=== PATIENT | male | born 1945 | race Caucasian/White ===

== ENCOUNTER 2022-07-08 09:35 | Observation (INO) ==
--- NOTE | 2022-06-24 10:29 | PAT Medication Instructions ---
Medication Instructions Date of Service June 24, 2022 Home Medications aspirin 81 mg tablet 81 mg PO QAM gabapentin 800 mg tablet 800 mg PO QAM isosorbide mononitrate 30 mg tablet,extended release 24 hr 30 mg PO QAM losartan 50 mg tablet 50 mg PO HS rosuvastatin 20 mg tablet 20 mg PO QAM silodosin 8 mg capsule 8 mg PO QPM tramadol 100 mg tablet 100 mg PO QAM Take morning of surgery With a small sip of water, OTHERWISE NOTHING TO EAT OR DRINK AFTER MIDNIGHT: aspirin 81 mg tablet 81 mg PO QAM (continue as normal unless told otherwise by surgeon) gabapentin 800 mg tablet 800 mg PO QAM isosorbide mononitrate 30 mg tablet,extended release 24 hr 30 mg PO QAM rosuvastatin 20 mg tablet 20 mg PO QAM tramadol 100 mg tablet 100 mg PO QAM Take evening before surgery losartan 50 mg tablet 50 mg PO HS silodosin 8 mg capsule 8 mg PO QPM Other Notes If you have any questions please call us at [phone] or [phone] or [phone] or [phone]
--- NOTE | 2022-06-26 09:40 | History & Physical Report ---
Date of Service June 26, 2022 date of surgery: 07/08/22 Procedure: Left Total Knee Arthroplasty Surgeon: Greg Holloway Assessment & Plan (1) Arthritis of knee, left: Plan: Risks and benefits of procedure discussed in detail today, patient would like to proceed with a Left total knee replacement at [facility] as scheduled. will obtain medical clearance prior to surgery as well as obtain PATs at [facility]. Will place on ASA 81mg po bid x 1 month post op, f/u 2 weeks post op for routine post-operative care and x-ray, sooner if having any problems. will make arrangements for HHPT at the time of discharge. At this point in time, has failed conservative measures and would like to proceed with surgical intervention. The risks and benefits have been discussed including, but not limited to, risk of infection, nerve injury, stiffness, loss of motion, failure to improve, etc. Reasonable outcomes and options of treatment were discussed. An explanation of appropriate alternatives to the procedure that may be advantageous were discussed and their risks and benefits, as well as the risks and benefits of not proceeding with treatment. I offered to answer any additional inquiries concerning the treatment involved. All the patient's questions were answered. The patient is agreeable, understanding of the treatment plan and alternatives, and wishes to proceed with the treatment plan. History of Present Illness Chief Complaint: left knee pain Primary Care Provider: JOSE RAFAEL BERNSTEIN Deandre is a pleasant 76-year-old male who presents for preop evaluation prior to his left total knee replacement. He states that he been having pain in his knee for many years now which is gradually worsened and is now affecting his daily activities including walking standing using stairs. He is tried oral anti- inflammatories and Tylenol without relief. X-rays were obtained which show advanced generative changes of the left knee, [id number] medial compartment and patellofemoral joint with joint space narrowing osteophyte formation subchondral sclerosis. He has a history of right knee replacement done approximately 10 years ago as well as ORIF of a right tibial plateau fracture. At this point time his left knee pain is affecting his daily activities and like to proceed with left total knee replacement Allergies Allergy/AdvReac Type Severity Reaction Status Date / Time No Known Allergies Allergy Verified 06/24/22 07:35 Home Medications Medication Instructions Recorded Confirmed Type aspirin 81 mg tablet 81 mg PO QAM 06/24/22 06/24/22 History gabapentin 800 mg tablet 800 mg PO QAM 06/24/22 06/24/22 History isosorbide mononitrate 30 mg 30 mg PO QAM 06/24/22 06/24/22 History tablet,extended release 24 hr losartan 50 mg tablet 50 mg PO HS 06/24/22 06/24/22 History rosuvastatin 20 mg tablet 20 mg PO QAM 06/24/22 06/24/22 History silodosin 8 mg capsule 8 mg PO QPM 06/24/22 06/24/22 History tramadol 100 mg tablet 100 mg PO QAM 06/24/22 06/24/22 History Past Med/Surg History Medical History Dysphagia Occasional HTN (hypertension) follows w/ Dr. Fay ([place]) Hx of renal calculi Hyperlipidemia Spinal cord neurostimulator device in situ ? unknown if PAT RN made patient aware to bring remote to PAT visit/DOS Surgical History History of carpal tunnel release of both wrists History of lithotripsy History of partial amputation of hand left thumb Hx of colonoscopy Hx of elbow surgery Hx of hand surgery left Hx of knee surgery right (dislocation) Hx of shoulder surgery Right rotator cuff repair x2 Hx of spinal surgery lumbar x2 (rods and cages- 2013) Hx of total knee replacement right Family History Other No family history of adverse response to anesthesia Social History Smoking Status: Never smoker Second Hand Exposure: No; Do You Dip or Chew Tobacco: No; Tobacco Cessation Education Requested by Patient: No Hx Alcohol Use: Yes Alcohol type: beer Hx Substance Use: No Preferred Language: Frisian Communication Ability: Effective Pediatrics Physician Required: No Beliefs That Will Affect Care: None Current Living Situation: Alone Other Information That Helps Us Care for You: No Feels Safe at Home: Yes Safety Concerns: Feels Safe At This Time Assistive Devices: Cane, Glasses, Hearing Aid - Bilateral and Walker Review of Systems Review of Systems: All systems reviewed & are unremarkable except as noted in HPI & below Constitutional: no fever, no chills and no sweats Respiratory: no cough and no dyspnea Cardiovascular: no chest pain, no dyspnea and no orthopnea Gastrointestinal: no abdominal pain, no nausea and no vomiting Musculoskeletal: as per Subjective / HPI Physical Exam Physical Exam: HT: 6ft 1in WT: 124.7kg Constitutional: WD/WN, vitals as above no acute distress Respiratory: normal respiratory effort, lungs clear to auscultation no respiratory distress, no labored breathing and does not use accessory muscles Cardiovascular: RRR, no murmur, no edema Gastrointestinal (Abdomen): normal bowel sounds, soft, nontender, no hepatosplenomegaly Musculoskeletal: Knee: + knee abnormal to inspection (LEFT KNEE), + effusion (+1 effusion), + limited ROM of knee (ROM 0/3/110), + knee ROM with crepitation, + joint line tenderness (medial joint line) and + Fannie's sign positive; no deformity, no skin erythema, no ecchymosis, no valgus laxity, no varus laxity, anterior drawer test negative, Gi's sign negative and pivot shift test negative Results & Data Results & Data Diagnostic Findings Left Knee X-ray: left knee series confirm advanced degenerative changes to the left knee, greatest medial compartments and patellofemoral joint, showing joint space narrowing, osteophyte formation and subchondral sclerosis. no acute bony pathology noted.
--- NOTE | 2022-06-26 10:24 | Anesthesiology Consultation ---
Date of Service June 26, 2022 Assessment & Plan (1) Encounter for pre-operative examination: - COVID screening: Per assessment on 06/26: No known COVID-19 positive contacts or current COVID-19 related symptoms. Travel screen negative. Patient vaccinated. At surgeon discretion if preop Covid testing being done. - Cardiology note (06/02/22): "Low to moderate risk" - Outpatient joint assessment: Pt currently scheduled for inpatient pathway. If surgeon requests review for outpatient joint pathway, patient is not recommended candidate for outpatient joint program from anesthesia standpoint. - Anesthesia concern: Pt states that after back injection for sciatica, patient had significant nerve pain resulting in ER visit. No improvement with narcotics. After 2 weeks, prescribed gabapentin and had significant improvement/resolution of pain. He has concerns with neuraxial anesthesia/anything in the spinal region d/t this issue in the past. Discussed SAB vs GA. Advised patient to discuss with anesthesiologist further AM DOS. Chart Review Chart Review: Acceptable Risk for Surgery and Patient seen in Pre Admission Testing Teaching & Discussion Pre-Anesthesia Teaching/Discussion Notes: Instructed NPO after midnight before surgery,except medications with 15 cc of water. Medication instructions provided according to the PAT guidelines. History Surgery Operation Date: 07/08/22 11:40 Proposed Procedures p Left Total Knee Arthroplasty - Greg Holloway DO Height/Weight Height: 6 ft 1 in Weight: 123.4 kg Allergies Allergy/AdvReac Type Severity Reaction Status Date / Time No Known Allergies Allergy Verified 06/24/22 07:35 Medications Home Medications Medication Instructions Recorded Confirmed Last Taken aspirin 81 mg tablet 81 mg PO QAM 06/24/22 06/24/22 Unknown gabapentin 800 mg tablet 800 mg PO QAM 06/24/22 06/24/22 Unknown isosorbide mononitrate 30 mg 30 mg PO QAM 06/24/22 06/24/22 Unknown tablet,extended release 24 hr losartan 50 mg tablet 50 mg PO HS 06/24/22 06/24/22 Unknown rosuvastatin 20 mg tablet 20 mg PO QAM 06/24/22 06/24/22 Unknown silodosin 8 mg capsule 8 mg PO QPM 06/24/22 06/24/22 Unknown tramadol 100 mg tablet 100 mg PO QAM 06/24/22 06/24/22 Unknown Past Medical History Medical History Dysphagia Occasional (meat, large fruit), unchanged x years HTN (hypertension) follows w/ Dr. Fay ([place]) Hx of renal calculi Hyperlipidemia Spinal cord neurostimulator device in situ patient aware to bring remote DOS Exercise / Class Metabolic Activity II 4-5 Yardwork/Stairs/Walk up hill (one FS (no CP, no SOB)) Past Family History Family History Other No family history of adverse response to anesthesia Past Surgical History Surgical History History of carpal tunnel release of both wrists History of lithotripsy History of partial amputation of hand left thumb Hx of colonoscopy Hx of elbow surgery Hx of hand surgery left Hx of knee surgery right (dislocation) Hx of shoulder surgery Right rotator cuff repair x2 Hx of spinal surgery lumbar x2 (rods and cages- 2013) Hx of total knee replacement right Past Anesthesia History No Hx of Anesthesia Complications and No Family Hx of Anesthesia Complications History of PONV No Hx of PONV and No Hx of Motion Sickness Social History Smoking Status: Never smoker Do You Dip or Chew Tobacco: No Hx Alcohol Use: Yes Alcohol type: beer alcohol intake frequency: 0-2 drinks per day (1-2 beers/day) Hx Substance Use: No substance use type: does not use Review of Systems Patient denies chest pain, shortness of breath, dyspnea on exertion, fever, chills, cough, wheezing, palpitations. Physical Exam Vital Signs VITALS BP 149/75 P 69 TEMP 98.2 SP02 95%RA RESP 16 PHYSICAL Full cervical extension range of motion. Full TMJ range of motion. TMD 3.5 finger breaths Mallampati Score 3 Dentition: intact Lungs: clear throughout to auscultation Cardiac: regular rate and rhythm, no murmurs noted Spine: normal Carotid arteries: negative bruit Extremities: no edema Lab Results Anesthesia Preop Results Results Anesthesia Widget: PTT 27.4 Seconds (21.0-31.0) 06/26/22 HA1c 5.7 % (4.5-5.6) H 06/26/22 Urine Color Dark Yellow 06/26/22 Urine Appearance Clear (Clear) 06/26/22 Urine pH 5.5 (4.5-7.5) 06/26/22 Urine Specific Novice 1.025 (1.000-1.030) 06/26/22 Urine Protein Negative (Negative) 06/26/22 Urine Glucose (UA) Negative (Negative) 06/26/22 Urine Ketones Negative (Negative) 06/26/22 Urine Blood Negative (Negative) 06/26/22 Urine Nitrite Negative (Negative) 06/26/22 Urine Bilirubin Negative (Negative) 06/26/22 Urine Urobilinogen Negative (Negative) 06/26/22 Urine Leukocyte Esterase Negative (Negative) 06/26/22 Blood Type O Negative 06/26/22 Antibody Screen NEGATIVE 06/26/22 Testing Laboratory Results 06/18/22 WBC 6.9 H/H 15.3/45.1 PLATELETS 210 SODIUM 140 POTASSIUM 4.3 CHLORIDE 109 CO2 23 BUN 19 CREATININE 1.0 GLUCOSE 103 PT 10.6 INR 1.06 Electrocardiogram Date: 06/26/22 NSR at 64bpm. Chest X-Ray Date: 06/26/22 FINDINGS: Intracanalicular electrodes are incidentally noted. Lung volumes are normal. Lungs are clear. There is no pneumothorax or pleural effusion. Cardiac size is normal. Mediastinal contours are normal. There is no evidence for pulmonary edema. IMPRESSION: No acute cardiopulmonary findings. COVID-19 Risk Screen Screening Information COVID-19 Screen Date: 06/26/22 Exposure 21 Days Family/Household +COVID Last 21 Days: No Exposure 10 Days Any COVID Exposure Last 10 Days: No Symptoms Last 10 Days Experienced COVID Sx Last 10 Days: No + COVID 0-90 Days COVID + in Last 0-90 Days: No
[~2022-07-08 09:35] MED LIST: ACETAMINOPHEN 500 MG TAB PO SCH; BUPIVACAINE 0.5 % 5 MG/1 ML PF 10ML VIAL ONE; CeleBREX 200 MG CAP PO SCH; EPINEPHrine INJ 1 MG/ML AMP ONE; FAMOTIDINE 20 MG TAB PO SCH; GABAPENTIN 300 MG CAP PO SCH; LR 500ML BOLUS, THEN 15ML/HR IV SCH; METOCLOPRAMIDE HCL 10 MG TABLET PO SCH; ROPIVACAINE 0.5% 5 MG/ML 30 ML VIAL ONE; ROPIVACAINE 0.5% HCL/PF 150 MG, BUPIVACAINE 0.75% MPF 20 ML, EPINEPHrine 30MG/30ML (OR ... INSTIL SCH; TRANEXAMIC ACID 1,000 MG **IV Intra-op IV SCH; TRANEXAMIC ACID 1,000 MG **IV Pre-op IV SCH; dexAMETHasone 4 MG TAB PO SCH
--- NOTE | 2022-07-08 10:05 | History & Physical Bridge Note ---
Date of Service July 08, 2022 History & Physical Bridge Note I have examined the patient, reviewed the History & Physical and in the interval since the performance of the History & Physical I have noted the following changes of clinical significance: no changes noted
[2022-07-08] MEDS ORDERED: PROPOFOL IV EMULSION 10 MG/ML 20 ML VIAL IV ONE (10:34)
[2022-07-08] MEDS ORDERED: fentaNYL citrate PF 100 MCG/2 ML VIAL ONE ×2 (10:35→11:49)
[2022-07-08] MEDS ORDERED: MIDAZOLAM HCL 1 MG/ML 2ML VIAL ONE (10:35)
[2022-07-08] MEDS ORDERED: ORTHO JOINT ANESTHETIC ONE (11:08)
[2022-07-08] MEDS ORDERED: ONDANSETRON INJ 2 MG/ML 2 ML VIAL IV PRN ×2 (11:26→14:46)
[2022-07-08] MEDS ORDERED: FLUMAZENIL 0.1 MG/1 ML 10 ML VIAL IV PRN (11:26)
[2022-07-08] MEDS ORDERED: ePHEDrine sulfate 50 MG/ML AMP IV PRN (11:26)
[2022-07-08] MEDS ORDERED: NALOXONE HCL 0.4 MG/1 ML VIAL/CARP IV PRN ×2 (11:26→14:46)
[2022-07-08] MEDS ORDERED: PROMETHAZINE HCL 12.5 MG in SODIUM CHLORIDE 0.9% 50 ML IV PRN (11:26)
[2022-07-08] MEDS ORDERED: fentaNYL citrate PF 100 MCG/2 ML VIAL IV PRN (11:26)
[2022-07-08] MEDS ORDERED: ATROPINE SULFATE 0.1 MG/ML 10ML SYR IV PRN (11:26)
[2022-07-08] MEDS ORDERED: LABETALOL HCL IV 5 MG/ML 20ML IV PRN (11:26)
[2022-07-08] MEDS ORDERED: HYDROmorphone INJ 1 MG/ML SYRINGE IV PRN (11:26)
[2022-07-08] MEDS ORDERED: ONDANSETRON INJ 2 MG/ML 2 ML VIAL ONE (12:00)
[2022-07-08] MEDS ORDERED: SUCCINYLCHOLINE CHLORIDE 20 MG/ML 10 ML VIAL IV ONE (12:00)
[2022-07-08] MEDS ORDERED: ROCURONIUM BROMIDE 10 MG/ML 5 ML VIAL IV ONE (12:00)
--- NOTE | 2022-07-08 12:22 | Operative Report ---
Post Operative Report Pre & Post Diagnosis Operation Date: 07/08/22 12:20 Pre-Op Diagnosis: Left knee osteoarthritis. Post-Op Diagnosis: Left knee osteoarthritis. I identified the patient and participated in the time-out.: Yes Procedure Operation Date: 07/08/22 12:20 Actual Procedures p Left Total Knee Arthroplasty(Left) utilizing [employer] [facility] 2 patient matched total knee arthroplasty size femur 6 tibia 6 poly 12 patella 32 cali Holloway DO Surgeon Greg Holloway DO Electric Cutter Operator Lamine SOTO Estimated Blood Loss 5 Findings Consistent with Post-Op Diagnosis Patient presents with severe end-stage tricompartmental DJD left knee with varus alignment subchondral sclerosis moderate to medial and lateral osteophytes eburnated [id number] and moderate to large effusion Specimens Bone and cartilage Drains Medium bore Hemovac Anesthesia Type MAC Spinal Regional Complications none Disposition Accompanied Patient To Recovery: No Indications Patient presents with severe end-stage tricompartmental DJD failing attempted conservative management clinic physical therapy anti-inflammatories relative rest activity modification corticosteroid injection the above intraoperative findings were noted Description of Procedure After proper prepping and draping of the left lower extremity anterior midline incision was made over the region of the extensor extensor mechanism after meticulous hemostasis was obtained and maintained in subcutaneous tissues a medial parapatellar incision was made The patella was subluxed lateralward the medial lateral gutter were cleaned from any hypertrophic synovitis and scar tissue of the distal femoral block was placed and the distal femoral osteotomy cut was made subsequently the chamfers anterior and posterior osteotomy cuts were made utilizing the 4-in-1 block the tibia was subsequently subluxed anteriorward medial and ateral meniscal remnants were excised in their entirety remnants of the anterior and posterior cruciate ligaments were excised in their entirety excellent exposure of the proximal tibia was obtained the tibial osteotomy guide was placed on the proximal tibial osteotomy cut was made once again the knee was irrigated with copious amounts of sterile saline solution the patella was subsequently everted lateralward thickened scar tissue around the patella was removed the patella was subsequently cut utilizing a freehand technique and was drilled prepared for final preparation and placement of patella socially flexion-extension gaps were checked and the equal and symmetric trials were placed to the appropriate femoral and tibial trials with poly-spacer being placed for equal flexion and extension gaps and full range of motion including extension to 0 and flexion to 140 the trial components after having been taken to recovery range of motion was subsequently removed meticulous hemostasis was obtained and maintained subsequently a knee block injection of joint cocktail including ropivacaine 0.5% 150 mg. Bupivacaine 0.5% epinephrine 1-200,030 mL's toradol 30 mg dexamethasone 4 mg ketamine 10 mg clonidine 100 micrograms normal saline solution 30 mg was infiltrated into the soft tissues of the posterior knee medial lateral gutters and periosteal synovium special attention was paid to protect neurovascular structures at all times subsequently trial components having been removed the knee was irrigated with sterile saline solution. debris was removed the proximal tibia was subsequently prepared and was made ready for the placement of the tibial component tibial component was also cemented and tamped into position the femoral component was subsequently placed and cemented in the position the patellar component was subsequently cemented in position because hemostasis once again obtained and maintained wound having been thoroughly irrigated with debridement and debridement lavage was performed as well as a medial parapatellar incision closed with #1 Vicryl in interrupted fashion subcutaneous was closed with #2 Vicryl skin was closed with skin clips. PA-C was necessary for prepping and drapping as well as wound closure of deep fascia Sub cutaneous tissue and skin and was necessary for the case. A sterile compressive dressing was placed patient was taken to recovery in stable condition of report dictated by Jewel I attest to the content of the Intraoperative Record and any orders documented therein. Any exceptions are noted below the complex nature of the procedure, the entire surgery was performed with the operational assistance of Lamine SOTO. The assistant professor of physics, under direct supervision, was involved in the actual performance of all aspects of the surgical procedure including hemostasis, tissue retraction and incision, instrument management, patient positioning, and wound closure. I attest to the content of the Intraoperative Record and any orders documented therein. Any exceptions are noted below.
[2022-07-08] MEDS ORDERED: SUGAMMADEX SODIUM 200 MG/2 ML VIAL IV ONE (12:57)
--- NOTE | 2022-07-08 13:45 | Anesthesiology Progress Note ---
Date of Service July 08, 2022 Anesthesia Post Procedure Vital Signs Vital Signs: Temp Pulse Resp BP Pulse Ox O2 Del Method O2 Flow Rate 07/08/22 13:40 75 17 116/64 95 Room Air 07/08/22 13:30 70 17 108/62 98 Room Air 07/08/22 13:20 75 18 98/62 L 98 Oxymask 5 07/08/22 13:14 36.5 C 84 18 116/62 99 Oxymask 5 07/08/22 10:27 36.5 C 74 20 167/85 H 95 Room Air Transfer of Care Handoff Completed per policy Notes Mental Status: alert / awake / arousable Patient Amnestic to Procedure: Yes Nausea / Vomiting: adequately controlled Pain: adequately controlled Airway Patency, RR, SpO2: stable & adequate BP & HR: stable & adequate Hydration State: stable & adequate Anesthetic Complications: no major complications apparent
--- NOTE | 2022-07-08 13:48 | XRay Report ---
TWO VIEWS LEFT KNEE CLINICAL HISTORY: Postoperative examination. FINDINGS: AP and crosstable lateral portable views of the left knee are obtained. A left knee arthrop lasty is in near anatomic alignment. There has been undersurface remodeling of the patella. No acute fracture is seen. There are expected postoperative changes around the knee including a surgical drain , soft tissue edema, and subcutaneous gas. IMPRESSION: Expected postoperative changes status post left knee arthroplasty. No acute fracture is s een. ACT 112: Negative or not required by law. Electronically signed by: Jroge Luis Lambert M.D. 07/08/2022 1:47 PM
[2022-07-08] MEDS ORDERED: diphenhydrAMINE 50 MG/ML VIAL IV PRN (14:46)
[2022-07-08] MEDS ORDERED: oxyCODONE HCL IR 5 MG TAB (IMMEDIATE RELEASE) PO PRN (14:46)
[2022-07-08] MEDS ORDERED: HYDROmorphone INJ 0.5 MG/0.5 ML SYR IV PRN (14:46)
[2022-07-08] MEDS ORDERED: bisacodyL 10 MG SUPP PR PRN (14:46)
[2022-07-08] MEDS ORDERED: MAGNESIUM HYDROXIDE SUSP 30 ML UDC PO PRN (14:46)
[2022-07-08] MEDS: SODIUM CHLORIDE 0.9% 1000ML 1,000 ML IV SCH (14:55)
[2022-07-08] MEDS: ACETAMINOPHEN 500 MG TAB PO SCH ×2 (15:43→23:45)
[2022-07-08] MEDS ORDERED: SENNA 8.6 MG TAB PO SCH (21:00)
[2022-07-08] MEDS ORDERED: LOSARTAN POTASSIUM 50 MG TAB PO SCH (21:00)
[2022-07-08] MEDS: ceFAZolin 2000MG 2,000 MG/15 ML SYR IV SCH (21:03)
[2022-07-08] MEDS: ASPIRIN 81 MG ECTAB PO SCH (21:03)
[2022-07-08] MEDS: DOCUSATE SODIUM 100 MG CAP PO SCH (21:04)
[2022-07-08] MEDS: GABAPENTIN 800 MG TAB PO SCH (21:04)
[2022-07-08] MEDS ORDERED: TAMSULOSIN HCL 0.4 MG CAP PO SCH (23:00)
[2022-07-09] MEDS: SODIUM CHLORIDE 0.9% 1000ML 1,000 ML IV SCH (01:00)
[2022-07-09] MEDS: ceFAZolin 2000MG 2,000 MG/15 ML SYR IV SCH (04:30)
[2022-07-09] MEDS: ACETAMINOPHEN 500 MG TAB PO SCH (05:26)
[2022-07-09 06:11] LABS: Hematocrit (blood only) 41.4 % (42.0-52.0); Hemoglobin 14.1 g/dl (14.0-18.0); Mean Corpuscular Hgb Conc 34.1 g/dL (32.0-36.0); Mean Corpuscular Volume 94.1 fL (80.0-100.0); Mean Platelet Volume 10.6 fL (9.4-12.4); Platelet Count 216 K/uL (130-400); RDW Coefficient of Variation 12.5 % (11.5-14.5); RDW Standard Deviation 43.3 fL (36.4-46.3); White Blood Count 14.73 K/ul (4.8-10.8)
[2022-07-09 06:24] LABS: BUN Creatinine Ratio 23.2 (10-20); Calcium 8.8 mg/dl (8.6-10.3); Creatinine Clr Calc Pharmacy 69.8 ml/min; Est GFR (African American) 64.9 ml/min; Potassium 4.7 mmol/L (3.5-5.1)
[2022-07-09] MEDS: DOCUSATE SODIUM 100 MG CAP PO SCH (07:31)
[2022-07-09] MEDS: ASPIRIN 81 MG ECTAB PO SCH (07:32)
[2022-07-09] MEDS: GABAPENTIN 800 MG TAB PO SCH (07:32)
--- NOTE | 2022-07-09 08:00 | Orthopedic Progress Note ---
Date of Service July 09, 2022 Assessment & Plan (1) Arthritis of knee, left: Plan: Postop day #1 left total knee arthroplasty -PT/OT -AM labs: Hemoglobin 14.5. Leukocytosis likely due to surgical stress versus perioperative steroids. Patient is asymptomatic. -DVT prophylaxis: SCDs, teds, aspirin 81 mg twice daily -Pain management as written -Discharge planning plan on discharge home with home health. We will leave Hemovac in place due to high output. Plan for home health to discontinue drain. Plan on discharge home today after therapy. Admission and Anticipated Discharge Date Admission Date: July 08, 2022 Subjective Patient is postop day #1 left total knee arthroplasty. He is doing well this morning. Has minimal pain. No current complaints. Denies chest pain, shortness of breath, nausea/vomiting, lightheadedness or dizziness. Review of Systems Review of Systems: All systems reviewed & are unremarkable except as noted in Subjective Physical Exam Physical Exam: Left knee: Dressing is clean, dry, intact. Toes are mobile with good dorsiflexion. No calf tenderness. Able to straight leg raise. Distally neurovascular status and sensation grossly intact. Constitutional: WD/WN, vitals as above Results & Data Vital Signs (Past 12 Hours) Vital Signs Temp Pulse Resp BP Pulse Ox O2 Del Method 07/09/22 07:46 36.5 C 78 16 156/64 H 98 Room Air 07/09/22 04:56 36.6 C 68 16 125/76 96 Room Air 07/08/22 21:03 Room Air 07/08/22 22:52 36.5 C 82 16 110/67 96 Room Air Laboratory Results Lab Results 07/08/22 07/09/22 07/09/22 Range/Units Unknown 05:43 05:43 WBC 14.73 H (4.8-10.8) K/ul RBC 4.40 L (4.70-6.10) M/uL Hgb 14.1 (14.0-18.0) g/dl Hct 41.4 L (42.0-52.0) % MCV 94.1 (80.0-100.0) fL MCH 32.0 (25.0-34.0) pg MCHC 34.1 (32.0-36.0) g/dL RDW Std Deviation 43.3 (36.4-46.3) fL RDW Coeff of Brice 12.5 (11.5-14.5) % Plt Count 216 (130-400) K/uL MPV 10.6 (9.4-12.4) fL Sodium 138 (136-145) mmol/L Potassium 4.7 (3.5-5.1) mmol/L Chloride 108 H (98-107) mmol/L Carbon Dioxide 25 (21-32) mmol/L Anion Gap 5 (3-11) BUN 29 H (6-23) mg/dl Creatinine 1.25 (0.6-1.4) mg/dl Est Cr Clr Drug Dosing 69.8 ml/min Est GFR ( Amer) 64.9 ml/min Est GFR (Non-Af Amer) 56.0 ml/min BUN/Creatinine Ratio 23.2 H (10-20) Glucose 128 H (70-99(Fasting)) mg/dl Calcium 8.8 (8.6-10.3) mg/dl SARS-CoV-2, RNA, NAAT NEGATIVE (NEGATIVE)
[2022-07-09] MEDS ORDERED: GABAPENTIN 800 MG TAB PO SCH (09:00)
[2022-07-09] MEDS ORDERED: ISOSORBIDE MONO EXTENDED REL 30 MG TABCR PO SCH (09:00)
[2022-07-09] MEDS ORDERED: ROSUVASTATIN CALCIUM 20 MG TAB PO SCH (09:00)
[2022-07-09] MEDS ORDERED: MULTIVITAMIN TAB PO SCH (09:00)
--- NOTE | 2022-07-10 16:05 | Discharge Summary ---
Date of Service date of discharge July 09, 2022 date of admission: 07/08/22 Admission HPI Per Admitting Provider Deandre is a pleasant 76-year-old male who presents for preop evaluation prior to his left total knee replacement. He states that he been having pain in his knee for many years now which is gradually worsened and is now affecting his daily activities including walking standing using stairs. He is tried oral anti- inflammatories and Tylenol without relief. X-rays were obtained which show advanced generative changes of the left knee, [id number] medial compartment and patellofemoral joint with joint space narrowing osteophyte formation subchondral sclerosis. He has a history of right knee replacement done approximately 10 years ago as well as ORIF of a right tibial plateau fracture. At this point time his left knee pain is affecting his daily activities and like to proceed with left total knee replacement Principal Diagnosis left knee arthritis Discharge Exam Musculoskeletal left knee: NVDI, calf SNT, negative rosita sign. DP palpable, able to wiggle toes/ankle movement without difficulty. YADIRA dressing clean dry and intact. expected post-operative bruising noted. Discharge Data Allergies Allergy/AdvReac Type Severity Reaction Status Date / Time No Known Allergies Allergy Verified 07/08/22 10:21 Consultations 07/08/22 14:46 Consult Hospitalist Routine Procedures Performed Operation Date: 07/08/22 12:20 Actual Procedures p Left Total Knee Arthroplasty(Left) - Greg Holloway DO Ordered Studies 07/08/22 05:00 US - OR guided needle placemen Routine 07/08/22 10:43 US - OR guided needle placemen Stat Hospital Course (1) Arthritis of knee, left: Postop day #1 left total knee arthroplasty -PT/OT -AM labs: Hemoglobin 14.5. Leukocytosis likely due to surgical stress versus perioperative steroids. Patient is asymptomatic. -DVT prophylaxis: SCDs, teds, aspirin 81 mg twice daily -Pain management as written -Discharge planning plan on discharge home with home health. We will leave Hemovac in place due to high output. Plan for home health to discontinue drain. Plan on discharge home today after therapy. Total Time Total Time Spent Total Time Spent (In Minutes): 20 Discharge Plan Discharge Items Patient Disposition: Home - Home Health Services Reason For Visit: Left Knee Osteoarthritis Discharge Diagnosis: Left Knee Osteoarthritis Activity: Per Instructions section Weightbearing: Left weightbearing Weightbearing Comment: as tolerated with walker Non-emergency contact: Surgeon Call non-emergency contact if: you have any medication questions, your pain is not controlled, your temperature is above 101.5, your wound has increased redne ss and your wound has increased drainage Follow-up/Referrals: Greg Holloway DO [Surgeon] - (Follow up with Dr Holloway or his PA in 2 weeks from the day of surgery for your first post operative visit. ) PCP,NO [Physician] - Diet: Regular Addtl Attending Provider Instructions: ACTIVITY RECOMMENDATIONS: SELF CARE INSTRUCTIONS AFTER TOTAL KNEE REPLACEMENT A. You may need to continue a physical therapy program after discharge from the hospital. There are several options available to you. Your doctor will assist you in selecting the best one for you. 1. An out-patient facility 2 to 3 times a week for therapy or home therapy. 2. Continue working on all exercises taught to you in the hospital. Your goals should be to increase bending of your knee to 90 degrees and beyond and to fully straighten your knee. B. You may progress at your own pace from walking with a walker or crutches to a cane; then to no assistive devices. C. Make walking a part of your daily routine. Be up as much as comfortable with rest periods throughout the day. Rest with leg elevation is very important. Use the ice wrap frequently for the first 3-4 weeks. D. There are no restrictions on activities. You may ride in a car, shop, participate in land conservation specialist and all social activities. E. Wear the long elastic stockings (CRISTINA hose) 20 hours a day for 2 weeks after surgery. They can be removed several times a day for laundering and for a bath. F. You may shower, no tub baths until cleared by your doctor. SPECIAL CARE INSTRUCTIONS: VERY IMPORTANT TO READ AND REVIEW A. There are a few signs you need to watch for after you are home. Call [facility] [place] if you notice any of the followin. Increased severe knee pain. Some pain is expected especially when you exercise. 2. Increased swelling in your leg or knee; pain or swelling of the calf muscle in either lower leg. 3. Any fluid drainage from the incision. 4. Shortness of breath or chest pain. B. Please call [facility] at if you have any concerns or questions about your operation or recovery. The doctor or his nurse will return your call promptly. C. You must take antibiotics before dental work, bladder, bowel or other surgery. Your doctor will provide you with a permanent care to carry describing this precaution. IMPORTANT: * REMEMBER TO TAKE ASPIRIN, 81 MG, TWICE DAILY FOR 4 WEEKS UNLESS OTHERWISE DIRECTED. THIS IS YOUR BLOOD THINNER. * CALL IF INCREASED PAIN, REDNESS, DRAINAGE OR FEVER GREATER THAT 101. * WEAR CRISTINA HOSE 20 HOURS PER DAY FOR 2 WEEKS. * YADIRA Dressing - This is a large suction dressing covering your incision. This will help pull any excess drainage from the wound and allow your incision to heal properly. You may shower with this if you can keep the unit outside of the shower. If any bleeding or leakage is noted please call your doctor's office. This will remain on your incision for 7 days and then should be removed. This can be done yourself or by the home nursing staff if applicable. The entire unit is disposable once removed. Once removed, keep incision clean and dry. If redness or drainage is noted, please call your surgeon. . ONCE YOUR YADIRA DRESSING HAS BEEN REMOVED, FOLLOW THE INSTRUCTIONS BELOW. * DERMABOND Prineo- This is a mesh tape dressing that is covered with glue. It should remain in place until the incision is properly healed, usually 10-14 days. This dressing is designed to naturally slough off. You may trim the excess mesh tape as it peels off. Incision may be briefly wet in a shower. Dry immediately by blotting with a clean, dry towel. Do not bath or swim until instructed by your doctor. Do not scratch, rub, or pick at the dressing. Do not apply any topical ointments or lotions until dressing is completely removed and/or instructed by your doctor. There may be a small piece of suture material at one end of your incision. Do not pull or trim this. If it is bothersome or catching on clothing, you may cover it with a band-aid. Home health to discontinue drain FOLLOW UP VISIT: If appointment is not already scheduled: Please call [facility] [place] to make a follow-up appointment for 2 weeks after your surgery at . Stand-Alone Forms: [employer] [facility] / TLL, Smoking Cessation Medications and DC Order Prescriptions: New acetaminophen [Tylenol Extra Strength] 500 mg Tablet 1,000 mg PO Q8 Qty: 60 0RF aspirin 81 mg Tablet,Delayed Release (Dr/Ec) 81 mg PO BID Qty: 60 0RF oxycodone 5 mg Tablet 5 - 10 mg PO .Q4h-6h MDD 6 PRN (Reason: pain) Qty: 30 0RF Rx Instructions: Ongoing therapy, Dr. Holloway supervising Continued losartan 50 mg Tablet 50 mg PO HS isosorbide mononitrate 30 mg Tablet Extended Release 24 Hr 30 mg PO QAM gabapentin 800 mg Tablet 800 mg PO TID rosuvastatin 20 mg Tablet 20 mg PO QAM silodosin 8 mg Capsule 8 mg PO QPM Rx Instructions: must administer with a meal/food Discontinued aspirin 81 mg Tablet 81 mg PO QAM tramadol 100 mg Tablet 100 mg PO QAM Admission Data Admit Date/Time: 07/08/22 13:22 Attending Provider: Grge Holloway Admit Provider: Greg Holloway Primary Care Provider: Erin Barrow Other Providers: Greg Gamboa ; [facility] ; Dolly Watts Other Interventions: Discharge Summary Assessment (RN) Last Done: 07/09/22 10:05
== END 2022-07-09 14:12 | disposition home health service (06) ==
LOC: 3E 09:35 → ASU 09:35 → MERGE 11:40